=== PATIENT | male | born 1990 | race Caucasian/White ===

== ENCOUNTER 2018-08-02 10:42 | Inpatient (IN) | payer OTHER ==
[2018-08-02 15:57] VITALS: BMI 29.4
--- NOTE | 2018-08-02 16:47 | HP ---
CIWA Score Nausea/Vomitin Muscle Tremors: 5 Anxiety: 5 Agitation: 4-Moderately Restless Paroxysmal Sweats: 1-Minimal Palms Moist Orientation: 0-Oriented Tacttile Disturbances: 2-Mild Itch/Numbness/Burn Auditory Disturbances: 0-None Visual Disturbances: 0-None Headache: 0-None Present CIWA-Ar Total Score: 19 - Admission Criteria OASAS Guidelines: Admission for Medically Managed Detox: Requires at least one of the followin. CIWA greater than 12 2. Seizures within the past 24 hours 3. Delirium tremens within the past 24 hours 4. Hallucinations within the past 24 hours 5. Acute intervention needed for co occurring medical disorder 6. Acute intervention needed for co occurring psychiatric disorder 7. Severe withdrawal that cannot be handled at a lower level of care (continued vomiting, continued diarrhea, abnormal vital signs) requiring intravenous medication and/or fluids 8. Admission ROS BHS - HPI Allergies/Adverse Reactions: Allergies Allergy/AdvReac Type Severity Reaction Status Date / Time No Known Allergies Allergy Verified 08/02/18 15:53 History of Present Illness: pt here requesting detox from etoh use , reports 4 pints/day since 3 years ago , first age of use 22 , latest use this morning , current symptoms as above . cocaine : occasional cannabis : 3x/week tobacco : 02/15 ppd PMHX : denies pshx : denies psych : denies meds : denies shx : lives w/ parents in [facility] Exam Limitations: Clinical Condition - Ebola screening Have you traveled outside of the country in the last 21 days: No Have you had contact with anyone from an Ebola affected area: No - Review of Systems Constitutional: See HPI, Loss of Appetite EENT: reports: No Symptoms Reported Respiratory: reports: SOB with Exertion (occasional) Cardiac: reports: Palpitations GI: reports: See HPI : reports: No Symptoms Reported Musculoskeletal: reports: Back Pain Integumentary: reports: No Symptoms Reported Neuro: reports: See HPI Endocrine: reports: No Symptoms Reported Psychiatric: reports: Orientated x3, Agitated, Anxious Patient History - Smoking Cessation Smoking history: Current every day smoker Initiated information on smoking cessation: No Family Disease History - Family Disease History Family Disease History: Other: Daughter (3 y.o. in [place] ) Admission Physical Exam S - Vital Signs Vital Signs: Vital Signs - 24 hr 08/02/18 15:54 Temperature 97.1 F L Pulse Rate 68 Respiratory 16 Rate Blood Pressure 146/87 - Physical General Appearance: Yes: Disheveled, Moderate Distress, Tremorous, Irritable, Sweating, Anxious HEENTM: Yes: EOMI, Hearing grossly Normal, Normocephalic, Normal Voice Respiratory: Yes: Chest Non-Tender, Lungs Clear, Normal Breath Sounds, No Respiratory Distress, No Accessory Muscle Use Neck: Yes: No masses,lesions,Nodules, Trachea in good position Cardiology: Yes: Regular Rhythm, Regular Rate, S1, S2 Abdominal: Yes: Soft, Tenderness (mild LUQ no rebound tenderness) Musculoskeletal: Yes: Gait Steady Extremities: Yes: Normal Range of Motion, Non-Tender, Tremors Neurological: Yes: Alert, Motor Strength 5/5 Integumentary: Yes: Warm - Diagnostic (1) Alcohol abuse Current Visit: Yes Status: Acute (2) Cocaine use disorder Current Visit: Yes Status: Chronic (3) Cannabis use disorder, mild, abuse Current Visit: Yes Status: Chronic (4) Nicotine dependence Current Visit: Yes Status: Chronic Breathalyzer - Breathalyzer Breathalyzer: 0 Urine Drug Screen - Test Device Lot number: [id number] Expiration date: 04/11/20 - Control Is test valid?: Yes - Results Drug screen NEGATIVE: No Urine drug screen results: THC-Marijuana, AKUA-Cocaine Inpatient Rehab Admission - Rehab Decision to Admit Inpatient rehab admission?: No
[2018-08-02] MEDS ORDERED: hydrOXYzine PAMOATE 25 MG CAPSULE (FP) PO PRN (17:03)
[2018-08-02] MEDS ORDERED: ACETAMINOPHEN 325 MG TABLET (FP) PO PRN ×2 (17:03)
[2018-08-02] MEDS ORDERED: NICOTINE POLACRILEX 2 MG GUM BUC PRN (17:03)
[2018-08-02] MEDS ORDERED: MAG HYDROX/AL HYDROX/SIMETH 30 ML UNIT-DOSE CUP PO PRN (17:03)
[2018-08-02] MEDS ORDERED: BISMUTH SUBSALICYLATE 524 MG/30 ML UD PO PRN (17:03)
[2018-08-02] MEDS ORDERED: MAGNESIUM CITRATE 300 ML BOTTLE PO PRN (17:03)
[2018-08-02] MEDS ORDERED: MAGNESIUM HYDROX 2400MG/30ML ORAL SUSPENSION 30 ML CUP PO PRN (17:03)
[2018-08-02] MEDS ORDERED: MENTHOL/PHENOL 1 EACH UD MM PRN (17:03)
[2018-08-02] MEDS ORDERED: chlordiazePOXIDE HCL 25 MG CAPSULE PO PRN (17:05)
[2018-08-02] MEDS: chlordiazePOXIDE HCL 25 MG CAPSULE PO SCH ×2 (18:23→22:43)
[2018-08-02] MEDS: THIAMINE HCL 100 MG TABLET (FP) PO SCH (22:43)
[2018-08-02] MEDS: MELATONIN 5 MG TABLETS PO PRN (22:44)
[2018-08-03] MEDS: chlordiazePOXIDE HCL 25 MG CAPSULE PO SCH ×4 (05:17→22:11)
--- NOTE | 2018-08-03 10:30 | PN ---
S CIWA - CIWA Score Nausea/Vomitin-No Nausea/No Vomiting Muscle Tremors: 2 Anxiety: 2 Agitation: 0-Normal Activity Paroxysmal Sweats: 3 Orientation: 0-Oriented Tacttile Disturbances: 2-Mild Itch/Numbness/Burn Auditory Disturbances: 0-None Visual Disturbances: 0-None Headache: 2-Mild CIWA-Ar Total Score: 11 BHS Progress Note (SOAP) Subjective: c/o sweats, anxiety, and mild headache. Objective: 08/03/18 10:30 Vital Signs 08/03/18 08/03/18 08/03/18 03:30 06:31 09:49 Temperature 97 F L 96.8 F L Pulse Rate 76 98 H Respiratory 18 18 18 Rate Blood Pressure 128/82 132/81 Labs pending. Assessment: 08/03/18 10:30 AOX3, in no acute distress. Full rom, ambulates in the unit. withdrawal signs Plan: continue detox.
[2018-08-03] MEDS: PRENATAL VITAMINS W/ FOLIC ACID TABLET (FP) PO SCH (10:33)
[2018-08-03 10:39] LABS: HEMATOCRIT 43.9 % (35.4-49); HEMOGLOBIN 15.2 GM/dL (11.7-16.9); MCH 32.1 pg (25.7-33.7); MCHC 34.6 g/dl (32.0-35.9); MEAN CELL VOLUME 92.9 fl (80-96); MEAN PLT VOLUME 7.7 fl (7.5-11.1); PLATELET COUNT 229 K/MM3 (134-434); RBC 4.72 M/mm3 (4.00-5.60); RDW 13.9 % (11.9-15.9); WHITE BLOOD COUNT 5.3 K/mm3 (4.0-10.0)
[2018-08-03 10:41] LABS: ALBUMIN 3.5 g/dl (3.4-5.0); BILIRUBIN,TOTAL 1.4 mg/dL (0.2-1); CALCIUM 9.1 mg/dL (8.5-10.1); POTASSIUM 4.4 mmol/L (3.5-5.1); TOT PROT 6.6 g/dl (6.4-8.2)
[2018-08-03] MEDS: IBUPROFEN 400 MG TABLET (FP) PO PRN (12:25)
[2018-08-03] MEDS ORDERED: METHOCARBAMOL 500 MG TABLET PO ONE (19:18)
--- NOTE | 2018-08-03 19:29 | PN ---
S Progress Note Note: patient complaint of pain in the left inguinal area denied urinary frequency history of alcohol dependence no history of trauma afebrile Vital Signs Temperature 97.6 F 08/03/18 18:00 Pulse Rate 87 08/03/18 18:00 Respiratory Rate 18 08/03/18 18:00 Blood Pressure 140/80 08/03/18 18:00 O2 Sat by Pulse Oximetry (%) abdomen soft,no distension no pain or tenderness no guarding,no regidity bowel sound active pain in the left inguinal area no definite henia both testes present,normal lying position no tenderness of testes pain over the epididymis impression r/o eididymitis left close monitoring
[2018-08-03 21:14] LABS: EPI CELLS 4.3 /HPF (0-5/HPF); HYALINE CASTS 107 /lpf (0-8); PH,URINE 6.5 (5.0-8.0); URINE APPEARANCE CLEAR; URINE BACTERIA 2.2 /hpf (NEGATIVE); URINE BILIRUBIN NEGATIVE (NEGATIVE); URINE COLOR YELLOW; URINE GLUCOSE (UA) NEGATIVE (NEGATIVE); URINE KETONE TRACE (NEGATIVE); URINE LEUK ESTERASE 1+ (NEGATIVE); URINE NITRITE NEGATIVE (NEGATIVE); URINE PROTEIN TRACE (NEGATIVE); URINE RBC 1 /hpf (0-4); URINE WBC 4 /hpf (0-5)
[2018-08-03] MEDS: THIAMINE HCL 100 MG TABLET (FP) PO SCH (22:10)
[2018-08-03] MEDS: MELATONIN 5 MG TABLETS PO PRN (22:10)
[2018-08-04] MEDS: chlordiazePOXIDE HCL 25 MG CAPSULE PO SCH ×2 (06:19→10:29)
[2018-08-04] MEDS ORDERED: METHOCARBAMOL 500 MG TABLET PO ONE (07:40)
[2018-08-04] MEDS: PRENATAL VITAMINS W/ FOLIC ACID TABLET (FP) PO SCH (10:28)
[2018-08-04] MEDS: IBUPROFEN 400 MG TABLET (FP) PO PRN (10:29)
--- NOTE | 2018-08-04 14:09 | PN ---
S CIWA - CIWA Score Nausea/Vomitin-Mild Nausea/No Vomiting Muscle Tremors: 1-None Visible, but [place] Anxiety: 1-Mildly Anxious Agitation: 1-Slight > Activity Paroxysmal Sweats: 2 Orientation: 0-Oriented Tacttile Disturbances: 1-Very Mild Itch/Numbness Auditory Disturbances: 0-None Visual Disturbances: 1-Very Mild Sensitivity Headache: 0-None Present CIWA-Ar Total Score: 8 BHS Progress Note (SOAP) Subjective: SHAKY, GI UPSET,ANXIOUS DENIES WORSENED PAIN Objective: 08/04/18 14:06 Laboratory Tests 08/03/18 08/03/18 08/03/18 08:00 08:00 08:00 WBC 5.3 RBC 4.72 Hgb 15.2 Hct 43.9 MCV 92.9 MCH 32.1 MCHC 34.6 RDW 13.9 Plt Count 229 MPV 7.7 Sodium 140 Potassium 4.4 Chloride 104 Carbon Dioxide 27 Anion Gap 9 BUN 12.0 Creatinine 1.0 Est GFR (CKD-EPI)AfAm 119.02 Est GFR (CKD-EPI)NonAf 102.69 Random Glucose 102 Calcium 9.1 Total Bilirubin 1.4 H AST 218 H ALT 252 H Alkaline Phosphatase 95 Total Protein 6.6 Albumin 3.5 Urine Color Urine Appearance Urine pH Ur Specific [place] Urine Protein Urine Glucose (UA) Urine Ketones Urine Blood Urine Nitrite Urine Bilirubin Urine Urobilinogen Ur Leukocyte Esterase Urine WBC (Auto) Urine RBC (Auto) Urine Casts (Auto) U Epithel Cells (Auto) Urine Bacteria (Auto) RPR Titer Nonreactive HIV 1&2 Antibody Screen HIV P24 Antigen 08/03/18 08/03/18 08:00 19:30 WBC RBC Hgb Hct MCV MCH MCHC RDW Plt Count MPV Sodium Potassium Chloride Carbon Dioxide Anion Gap BUN Creatinine Est GFR (CKD-EPI)AfAm Est GFR (CKD-EPI)NonAf Random Glucose Calcium Total Bilirubin AST ALT Alkaline Phosphatase Total Protein Albumin Urine Color Yellow Urine Appearance Clear Urine pH 6.5 Ur Specific [place] 1.026 Urine Protein Trace Urine Glucose (UA) Negative Urine Ketones Trace H Urine Blood Negative Urine Nitrite Negative Urine Bilirubin Negative Urine Urobilinogen 1.0 Ur Leukocyte Esterase 1+ H Urine WBC (Auto) 4 Urine RBC (Auto) 1 Urine Casts (Auto) 107 U Epithel Cells (Auto) 4.3 Urine Bacteria (Auto) 2.2 RPR Titer HIV 1&2 Antibody Screen Negative HIV P24 Antigen Negative Laboratory Tests 08/03/18 08/03/18 08/03/18 08:00 08:00 08:00 WBC 5.3 RBC 4.72 Hgb 15.2 Hct 43.9 MCV 92.9 MCH 32.1 MCHC 34.6 RDW 13.9 Plt Count 229 MPV 7.7 Sodium 140 Potassium 4.4 Chloride 104 Carbon Dioxide 27 Anion Gap 9 BUN 12.0 Creatinine 1.0 Est GFR (CKD-EPI)AfAm 119.02 Est GFR (CKD-EPI)NonAf 102.69 Random Glucose 102 Calcium 9.1 Total Bilirubin 1.4 H AST 218 H ALT 252 H Alkaline Phosphatase 95 Total Protein 6.6 Albumin 3.5 Urine Color Urine Appearance Urine pH Ur Specific [place] Urine Protein Urine Glucose (UA) Urine Ketones Urine Blood Urine Nitrite Urine Bilirubin Urine Urobilinogen Ur Leukocyte Esterase Urine WBC (Auto) Urine RBC (Auto) Urine Casts (Auto) U Epithel Cells (Auto) Urine Bacteria (Auto) RPR Titer Nonreactive HIV 1&2 Antibody Screen HIV P24 Antigen 08/03/18 08/03/18 08:00 19:30 WBC RBC Hgb Hct MCV MCH MCHC RDW Plt Count MPV Sodium Potassium Chloride Carbon Dioxide Anion Gap BUN Creatinine Est GFR (CKD-EPI)AfAm Est GFR (CKD-EPI)NonAf Random Glucose Calcium Total Bilirubin AST ALT Alkaline Phosphatase Total Protein Albumin Urine Color Yellow Urine Appearance Clear Urine pH 6.5 Ur Specific [place] 1.026 Urine Protein Trace Urine Glucose (UA) Negative Urine Ketones Trace H Urine Blood Negative Urine Nitrite Negative Urine Bilirubin Negative Urine Urobilinogen 1.0 Ur Leukocyte Esterase 1+ H Urine WBC (Auto) 4 Urine RBC (Auto) 1 Urine Casts (Auto) 107 U Epithel Cells (Auto) 4.3 Urine Bacteria (Auto) 2.2 RPR Titer HIV 1&2 Antibody Screen Negative HIV P24 Antigen Negative ALERT, AMBULATING, ORIENTED Assessment: 08/04/18 14:08 ONGOING WITHDRAWAL IMPROVED PAIN Plan: CONTINUE DETOX PROTOCOL CONT TO MONITOR INGUINAL PAIN
[2018-08-04] MEDS ORDERED: chlordiazePOXIDE HCL 10 MG CAPSULE PO PRN (17:00)
[2018-08-04] MEDS: chlordiazePOXIDE HCL 10 MG CAPSULE PO SCH ×2 (17:09→22:09)
[2018-08-04] MEDS: THIAMINE HCL 100 MG TABLET (FP) PO SCH (22:09)
[2018-08-04] MEDS: MELATONIN 5 MG TABLETS PO PRN (22:09)
[2018-08-05] MEDS ORDERED: guaiFENesin/D-METHORPHAN HB 10 ML UNIT-DOSE CUPS PO PRN (01:37)
--- NOTE | 2018-08-05 01:45 | PN ---
[facility] Progress Note Note: Patient complained of cough Vital Signs Temperature 97.7 F 08/04/18 22:00 Pulse Rate 61 08/04/18 22:00 Respiratory Rate 18 08/05/18 00:30 Blood Pressure 132/83 08/04/18 22:00 O2 Sat by Pulse Oximetry (%) Action: Robitussin DM 10ml oral Q6H ordered
[2018-08-05] MEDS: chlordiazePOXIDE HCL 10 MG CAPSULE PO SCH ×2 (05:09→10:50)
[2018-08-05 06:17] VITALS: BP 98/60; PULSE 53; TEMP 97
[2018-08-05 10:29] LABS: ALBUMIN 3.4 g/dl (3.4-5.0); BILIRUBIN,DIRECT 0.4 mg/dL (0.0-0.2); BILIRUBIN,TOTAL 0.8 mg/dL (0.2-1); TOT PROT 6.4 g/dl (6.4-8.2)
[2018-08-05] MEDS: PRENATAL VITAMINS W/ FOLIC ACID TABLET (FP) PO SCH (10:50)
[2018-08-05] MEDS ORDERED: chlordiazePOXIDE HCL 10 MG CAPSULE PO SCH (17:00)
--- NOTE | 2018-08-05 22:49 | PN ---
S CIWA - CIWA Score Nausea/Vomitin-No Nausea/No Vomiting Muscle Tremors: None Anxiety: 0-No Anxiety, at Ease Agitation: 2 Paroxysmal Sweats: No Perspiration Orientation: 0-Oriented Tacttile Disturbances: 0-None Auditory Disturbances: 0-None Visual Disturbances: 0-None Headache: 0-None Present CIWA-Ar Total Score: 2 BHS Progress Note (SOAP) Subjective: Patient reports That Patient reports that current Withdrawal / Detox symptoms are minimal in degree and that he feels well overall. Objective: PATIENT A & O X 3, OBSERVED AMBULATING ON UNIT UNASSISTED. IN NO ACUTE DISTRESS. Vital Signs Temperature 97 F L 08/05/18 06:16 Pulse Rate 53 L 08/05/18 06:16 Respiratory Rate 18 08/05/18 06:30 Blood Pressure 98/60 08/05/18 06:16 O2 Sat by Pulse Oximetry (%) Laboratory Tests 08/03/18 08/03/18 08/03/18 08:00 08:00 08:00 WBC 5.3 RBC 4.72 Hgb 15.2 Hct 43.9 MCV 92.9 MCH 32.1 MCHC 34.6 RDW 13.9 Plt Count 229 MPV 7.7 Sodium 140 Potassium 4.4 Chloride 104 Carbon Dioxide 27 Anion Gap 9 BUN 12.0 Creatinine 1.0 Est GFR (CKD-EPI)AfAm 119.02 Est GFR (CKD-EPI)NonAf 102.69 Random Glucose 102 Calcium 9.1 Total Bilirubin 1.4 H Direct Bilirubin AST 218 H ALT 252 H Alkaline Phosphatase 95 Total Protein 6.6 Albumin 3.5 Urine Color Urine Appearance Urine pH Ur Specific [place] Urine Protein Urine Glucose (UA) Urine Ketones Urine Blood Urine Nitrite Urine Bilirubin Urine Urobilinogen Ur Leukocyte Esterase Urine WBC (Auto) Urine RBC (Auto) Urine Casts (Auto) U Epithel Cells (Auto) Urine Bacteria (Auto) RPR Titer Nonreactive HIV 1&2 Antibody Screen HIV P24 Antigen 08/03/18 08/03/18 08/05/18 08:00 19:30 07:00 WBC RBC Hgb Hct MCV MCH MCHC RDW Plt Count MPV Sodium Potassium Chloride Carbon Dioxide Anion Gap BUN Creatinine Est GFR (CKD-EPI)AfAm Est GFR (CKD-EPI)NonAf Random Glucose Calcium Total Bilirubin 0.8 Direct Bilirubin 0.4 H AST 408 H ALT 492 H Alkaline Phosphatase 103 Total Protein 6.4 Albumin 3.4 Urine Color Yellow Urine Appearance Clear Urine pH 6.5 Ur Specific [place] 1.026 Urine Protein Trace Urine Glucose (UA) Negative Urine Ketones Trace H Urine Blood Negative Urine Nitrite Negative Urine Bilirubin Negative Urine Urobilinogen 1.0 Ur Leukocyte Esterase 1+ H Urine WBC (Auto) 4 Urine RBC (Auto) 1 Urine Casts (Auto) 107 U Epithel Cells (Auto) 4.3 Urine Bacteria (Auto) 2.2 RPR Titer HIV 1&2 Antibody Screen Negative HIV P24 Antigen Negative LABS NOTED. 08/05/18 22:46 Assessment: 08/05/18 22:47 COMPLETION OF DETOX REGIMEN. 08/05/18 22:47 Plan: SINCE PATIENT REPORTS THAT CURRENT WITHDRAWAL / DETOX SYMPTOMS ARE MINIMAL IN DEGREE AND THAT HE FEELS WELL OVERALL, AT PATIENTS REQUEST, HE WAS GRANTED AN EARLY DISCHARGE FROM DETOX UNIT TODAY SO THAT HE MAY PROCEED ON TO AFTERCARE PLAN - THE [facility] ([place], [place]).
--- NOTE | 2018-08-05 22:54 | DS ---
[facility] Detox Discharge Summary Admission Date: 08/02/18 Discharge Date: 08/05/18 - History Present History: Alcohol Dependence, Cannabis Dependence, Cocaine Dependence Additional Comments: PATIENT REPORTS THAT CURRENT WITHDRAWAL / DETOX SYMPTOMS ARE MINIMAL IN DEGREE AND THAT HE FEELS WELL OVERALL AT TIME OF DISCHARGE FROM DETOX UNIT. PATIENT GOING TO THE '[facility] OUTPATIENT PROGRAM ([place], [place]) FOR AFTERCARE. PATIENT ADVISED TO FOLLOW-UP WITH STREET OPENINGS INSPECTOR AFTER DISCHARGE FROM DETOX FOR GENERAL MEDICAL ASSESSMENT AND FOR ELEVATED LIVER ENZYMES AND FOR ELEVAGTED BILIRUBIN LEVEL NOTED ON DETOX ADMISSION AND REPEAT LABORATORY ASSESSMENTS. PATIENT VERBALIZED UNDERSTANDING OF RECOMMENDATION. COPIES OF RESULTS OF ALL LABS DRAWN WHILE ADMITTED FOR DETOX GIVEN TO PATIENT AT TIME OF DISCHARGE FROM DETOX UNIT. PATIENT WAS DISCHARGED FROM DETOX UNIT IN STABLE MEDICAL CONDITION. Pertinent Past History: Nicotine Dependence, Elevated AST Level, Elevated ALT Level, Hyperbilirubinemia. - Physical Exam Results Vital Signs: Vital Signs Temperature 97 F L 08/05/18 06:16 Pulse Rate 53 L 08/05/18 06:16 Respiratory Rate 18 08/05/18 06:30 Blood Pressure 98/60 08/05/18 06:16 O2 Sat by Pulse Oximetry (%) Pertinent Admission Physical Exam Findings: WITHDRAWAL SYMPTOMS. Laboratory Tests 08/03/18 08/03/18 08/03/18 08:00 08:00 08:00 WBC 5.3 RBC 4.72 Hgb 15.2 Hct 43.9 MCV 92.9 MCH 32.1 MCHC 34.6 RDW 13.9 Plt Count 229 MPV 7.7 Sodium 140 Potassium 4.4 Chloride 104 Carbon Dioxide 27 Anion Gap 9 BUN 12.0 Creatinine 1.0 Est GFR (CKD-EPI)AfAm 119.02 Est GFR (CKD-EPI)NonAf 102.69 Random Glucose 102 Calcium 9.1 Total Bilirubin 1.4 H Direct Bilirubin AST 218 H ALT 252 H Alkaline Phosphatase 95 Total Protein 6.6 Albumin 3.5 Urine Color Urine Appearance Urine pH Ur Specific [place] Urine Protein Urine Glucose (UA) Urine Ketones Urine Blood Urine Nitrite Urine Bilirubin Urine Urobilinogen Ur Leukocyte Esterase Urine WBC (Auto) Urine RBC (Auto) Urine Casts (Auto) U Epithel Cells (Auto) Urine Bacteria (Auto) RPR Titer Nonreactive HIV 1&2 Antibody Screen HIV P24 Antigen 08/03/18 08/03/18 08/05/18 08:00 19:30 07:00 WBC RBC Hgb Hct MCV MCH MCHC RDW Plt Count MPV Sodium Potassium Chloride Carbon Dioxide Anion Gap BUN Creatinine Est GFR (CKD-EPI)AfAm Est GFR (CKD-EPI)NonAf Random Glucose Calcium Total Bilirubin 0.8 Direct Bilirubin 0.4 H AST 408 H ALT 492 H Alkaline Phosphatase 103 Total Protein 6.4 Albumin 3.4 Urine Color Yellow Urine Appearance Clear Urine pH 6.5 Ur Specific [place] 1.026 Urine Protein Trace Urine Glucose (UA) Negative Urine Ketones Trace H Urine Blood Negative Urine Nitrite Negative Urine Bilirubin Negative Urine Urobilinogen 1.0 Ur Leukocyte Esterase 1+ H Urine WBC (Auto) 4 Urine RBC (Auto) 1 Urine Casts (Auto) 107 U Epithel Cells (Auto) 4.3 Urine Bacteria (Auto) 2.2 RPR Titer HIV 1&2 Antibody Screen Negative HIV P24 Antigen Negative LABS NOTED. - Treatment Hospital Course: Detox Protocol Followed, Detoxed Safely, Responded well, Discharged Condition Good Patient has Accepted a Rehab Referral to: PT. GOING TO THE [facility], [place], [place] - Medication Discharge Medications: Ambulatory Orders NK [No Known Home Medication] 08/02/18 - Diagnosis (1) Elevated aspartate aminotransferase level Status: Acute (2) Elevated alanine aminotransferase (ALT) level Status: Acute (3) Alcohol abuse Status: Acute (4) Cannabis use disorder, mild, abuse Status: Chronic (5) Cocaine use disorder Status: Chronic (6) Nicotine dependence Status: Chronic Qualifiers: Nicotine product type: cigarettes Substance use status: uncomplicated Qualified Code(s): F17.210 - Nicotine dependence, cigarettes, uncomplicated - AMA Did Patient Leave Against Medical Advice: No
== END 2018-08-05 09:10 | disposition home or self-care (01) | DRG 774 ==
LOC: YASAS 10:42 → Y3N 17:29
PROVIDERS: ADMIT Surgery; ATTEND Surgery
PROC: HZ2ZZZZ Detoxification Services for Substance Abuse Treatment (ICD-10-PCS; principal; 2018-08-02)
DX: F10.230 Alcohol dependence with withdrawal, uncomplicated (principal); F12.10 Cannabis abuse, uncomplicated; F14.10 Cocaine abuse, uncomplicated; F17.210 Nicotine dependence, cigarettes, uncomplicated; R94.5 Abnormal results of liver function studies; E80.6 Other disorders of bilirubin metabolism; R05 Cough; R10.32 Left lower quadrant pain
CPT/HCPCS: 36415; 80053; 80076; 81003; 85027; 86593; 87389

== ENCOUNTER 2019-08-15 09:09 | Inpatient (IN) | payer OTHER ==
--- NOTE | 2019-08-15 10:40 | BHS.RME ---
Substance Use & Tx History - Substance Use History Alcohol Substance amount: 1/5 vodka and 1 pint Frequency of use: Daily Substance route: Oral Cocaine- Powder Substance amount: " not a lot" Frequency of use: Less than 3 times per week Substance route: Inhalation (ex: sniffing or snorting), Smoking Cannabis Substance amount: 1 Frequency of use: More than 3 times per week Substance route: Inhalation (ex: sniffing or snorting) - Last Treatment Date of last treatment: 04/2019 Where was last treatment: Detox Physical/Psych/Mental Status - Behavior General Behavior: Increased activity (restlessness, agitation) - Cooperativeness Cooperativeness: Cooperative - Thinking Thought Processes: Logical, Loosened - Physical Health Problems Is patient presently having any pain?: No Does patient presently have any injuries (include location): No Does patient currently have a fever: No CIWA Nausea/Vomitin-Int. Nausea w/Dry Heave Muscle Tremors: 3 Anxiety: 3 Agitation: 3 Paroxysmal Sweats: 2 Orientation: 0-Oriented Tacttile Disturbances: 0-None Auditory Disturbances: 0-None Visual Disturbances: 2-Mild Sensitivity Headache: 1-Very Mild CIWA-Ar Total Score: 18
--- NOTE | 2019-08-15 10:43 | HP ---
CIWA Score Nausea/Vomitin-Int. Nausea w/Dry Heave Muscle Tremors: 3 Anxiety: 3 Agitation: 3 Paroxysmal Sweats: 2 Orientation: 0-Oriented Tacttile Disturbances: 0-None Auditory Disturbances: 0-None Visual Disturbances: 2-Mild Sensitivity Headache: 1-Very Mild CIWA-Ar Total Score: 18 - Admission Criteria OASAS Guidelines: Admission for Medically Managed Detox: Requires at least one of the followin. CIWA greater than 12 2. Seizures within the past 24 hours 3. Delirium tremens within the past 24 hours 4. Hallucinations within the past 24 hours 5. Acute intervention needed for co occurring medical disorder 6. Acute intervention needed for co occurring psychiatric disorder 7. Severe withdrawal that cannot be handled at a lower level of care (continued vomiting, continued diarrhea, abnormal vital signs) requiring intravenous medication and/or fluids 8. Admitting History and Physical - Smoking History Smoking history: Current every day smoker Have you smoked in the past 12 months: Yes Aproximately how many cigarettes per day: 4 - Alcohol/Substance Use Hx Alcohol Use: Yes - Social History Occupation: cleaning History of Recent Travel: No Admission ROS S - HPI Allergies/Adverse Reactions: Allergies Allergy/AdvReac Type Severity Reaction Status Date / Time No Known Allergies Allergy Verified 08/15/19 11:43 History of Present Illness: 29 y.o. male requesting detox from etoh use , reports 1 pint and 1/5 vodka/day since 4 years ago , first age of use 22 , latest use this morning , current [place] 0.210 cocaine : occasional cannabis : 3x/week tobacco : 1/4 ppd Exam Limitations: Clinical Condition, Intoxication - Review of Systems Constitutional: See HPI, Loss of Appetite EENT: reports: No Symptoms Reported, Other (glasses) Respiratory: reports: Shortness of Breath (during withdrawal only) Cardiac: reports: No Symptoms Reported GI: reports: See HPI, Nausea, Poor Appetite, Vomiting : reports: No Symptoms Reported Musculoskeletal: reports: No Symptoms Reported Integumentary: reports: No Symptoms Reported Neuro: reports: See HPI, Headache, Tremors Endocrine: reports: No Symptoms Reported Hematology: reports: No Symptoms Reported Psychiatric: reports: Orientated x3, Agitated, Anxious Patient History - Patient Medical History Hx Asthma: No Hx Chronic Obstructive Pulmonary Disease (COPD): No Hx Cancer: No Hx Cardiac Disorders: No Hx Hypertension: No Hx Hypercholesterolemia: No Hx Pacemaker: No HX Cerebrovascular Accident: No Hx Seizures: No Hx Dementia: No Hx Diabetes: No Hx Gastrointestinal Disorders: No Hx Liver Disease: No Hx Genitourinary Disorders: No Hx Sexually Transmitted Disorders: No Hx Renal Disease (ESRD): No Hx Thyroid Disease: No Hx Human Immunodeficiency Virus (HIV): No (last 04/03 ) Hx Hepatitis C: No Hx Depression: No Hx Suicide Attempt: No Hx Bipolar Disorder: No Hx Schizophrenia: No - Patient Surgical History Past Surgical History: No Hx Neurologic Surgery: No Hx Cataract Extraction: No Hx Cardiac Surgery: No Hx Lung Surgery: No Hx Breast Surgery: No Hx Breast Biopsy: No Hx Abdominal Surgery: No Hx Appendectomy: No Hx Cholecystectomy: No Hx Genitourinary Surgery: No Hx Section: No Hx Orthopedic Surgery: No Anesthesia Reaction: No - PPD History Date: 08/04/18 Results: 0 mm - Smoking Cessation Smoking history: Current every day smoker Have you smoked in the past 12 months: Yes Aproximately how many cigarettes per day: 4 Cigars Per Day: 0 Hx Chewing Tobacco Use: No Initiated information on smoking cessation: No - Substances abused Alcohol Substance route: Oral Frequency: Daily Amount used: 5th and pint of vodka Age of first use: 16 Date of last use: 08/15/19 Admission Physical Exam [facility] - Physical General Appearance: Yes: Moderate Distress, Severe Distress, Alcohol on Breath, Intoxicated, Tremorous, Sweating, Anxious HEENTM: Yes: EOMI, Hearing grossly Normal, Normocephalic, Normal Voice Respiratory: Yes: Chest Non-Tender, Lungs Clear, Normal Breath Sounds, No Respiratory Distress, No Accessory Muscle Use Neck: Yes: No masses,lesions,Nodules, Trachea in good position Cardiology: Yes: Regular Rhythm, Regular Rate, S1, S2, Tachycardia Abdominal: Yes: Normal Bowel Sounds, Non Tender, Soft Back: Yes: Normal Inspection Musculoskeletal: Yes: Other (staggering gait) Extremities: Yes: Normal Range of Motion, Non-Tender, Tremors Neurological: Yes: Fully Oriented, Alert, Motor Strength 5/5 Integumentary: Yes: Warm - Diagnostic (1) Alcohol dependence with uncomplicated intoxication Current Visit: Yes Status: Acute (2) Cannabis use disorder, mild, abuse Current Visit: Yes Status: Chronic (3) Cocaine use disorder Current Visit: Yes Status: Chronic (4) Nicotine dependence Current Visit: Yes Status: Chronic Qualifiers: Nicotine product type: cigarettes Breathalyzer - Breathalyzer Breathalyzer: 0 Urine Drug Screen - Test Device Lot number: [id number] Expiration date: 04/11/20 - Control Is test valid?: Yes - Results Drug screen NEGATIVE: No Urine drug screen results: THC-Marijuana, AKUA-Cocaine Inpatient Rehab Admission - Rehab Decision to Admit Inpatient rehab admission?: No
[2019-08-15] MEDS ORDERED: IBUPROFEN 400 MG TABLET (FP) PO PRN (11:03)
[2019-08-15] MEDS ORDERED: MELATONIN 5 MG TABLETS PO PRN (11:03)
[2019-08-15] MEDS ORDERED: MAGNESIUM HYDROX 2400MG/30ML ORAL SUSPENSION 30 ML CUP PO PRN (11:03)
[2019-08-15] MEDS ORDERED: MAGNESIUM CITRATE 300 ML BOTTLE PO PRN (11:03)
[2019-08-15] MEDS ORDERED: BISMUTH SUBSALICYLATE 524 MG/30 ML UD PO PRN (11:03)
[2019-08-15] MEDS ORDERED: MAG HYDROX/AL HYDROX/SIMETH 30 ML UNIT-DOSE CUP PO PRN (11:03)
[2019-08-15] MEDS ORDERED: ONDANSETRON *ODT* 4 MG TABLET SL PRN ×2 (11:03→17:06)
[2019-08-15] MEDS ORDERED: ACETAMINOPHEN 325 MG TABLET (FP) PO PRN ×2 (11:03)
[2019-08-15] MEDS ORDERED: NICOTINE POLACRILEX 2 MG GUM BUC PRN (11:03)
[2019-08-15] MEDS ORDERED: hydrOXYzine PAMOATE 25 MG CAPSULE (FP) PO PRN (11:03)
[2019-08-15] MEDS ORDERED: MENTHOL/PHENOL 1 EACH UD MM PRN (11:03)
[2019-08-15] MEDS ORDERED: chlordiazePOXIDE HCL 25 MG CAPSULE PO PRN (11:06)
[2019-08-15] MEDS ORDERED: TRIMETHOBENZAMIDE HCL 200MG/2ML INJ IM ONE ×2 (11:08→18:51)
[2019-08-15 11:09] VITALS: BMI 29.2
[2019-08-15] MEDS: chlordiazePOXIDE HCL 25 MG CAPSULE PO SCH ×3 (11:39→22:08)
--- NOTE | 2019-08-15 13:37 | CONSULT ---
[facility] Psychiatric Consult - Data Date of interview: 08/15/19 Admission source: [facility] Identifying data: Readmission to [address] [place] [address] for this 29 y/o male, self- referred for detoxification treatment. JORGE issues : alcohol, cocaine, cannabis, nicotine. Patient is single, father of one, domiciled, unemployed and supported on odd jobs. Substance Abuse History: Patient is previously known to [facility]. He admits to having started consuming ETOH about 4-5 years ago (1-2 pints of vodka daily) and sporadic use of cocaine and cannabis. Mr Amor smokes 5-10 cigarettes daily. History of multiple relapses. Medical History: Patient endorses good general health. Psychiatric History: Patient denies history of psychiatric hospitalizations. Mr Amor indicates current treatment with escitalopram under the diagnosis of Anxiety Disorder (prescribed by his primary care physician). Patient reports no contact with psychiatric care providers. No history of suicide attempts. Physical/Sexual Abuse/Trauma History: Patient denies. Additional Comment: Urine drug screen results: THC-Marijuana, AKUA-Cocaine. Noted. Mental Status Exam - Mental Status Exam Alert and Oriented to: Time, Place, Person Cognitive Function: Good Patient Appearance: Well Groomed Mood: Withdrawn Affect: Mood Congruent, Constricted Patient Behavior: Fatigued, Appropriate, Cooperative Speech Pattern: Clear, Appropriate Voice Loudness: Normal Thought Process: Intact, Goal Oriented Thought Disorder: Not Present Hallucinations: Denies Suicidal Ideation: Denies Homicidal Ideation: Denies Insight/Judgement: Poor Sleep: Well Appetite: Good Gait/Station: Other (not observed; patient is resting comfortably in bed) Psychiatric Findings - Problem List ([place] 1, 2,3) (1) Alcohol dependence with uncomplicated withdrawal Current Visit: Yes Status: Acute (2) Cannabis use disorder, mild, abuse Current Visit: Yes Status: Chronic (3) Cocaine use disorder Current Visit: Yes Status: Chronic (4) Nicotine dependence Current Visit: Yes Status: Chronic Qualifiers: Nicotine product type: cigarettes (5) Substance induced mood disorder Current Visit: Yes Status: Chronic (6) Insomnia Current Visit: Yes Status: Chronic Qualifiers: Insomnia type: unspecified Qualified Code(s): G47.00 - Insomnia, unspecified - Initial Treatment Plan Initial Treatment Plan: Psychoeducation. Sleep hygiene. Support. Detoxification is intiated. Group and individual therapy. Motivational counseling. Strict adherence to COVID-19 guidelines (social distancing, hand washing, face mask to be worn at all times in communal areas of the unit). Patient declines to resume lexapro. Mr Amor verbalizes no interest for rehabilitation. Patient prefers to return to employment after completion of detoxification. Observation.
[2019-08-15] MEDS ORDERED: THIAMINE HCL 100 MG TABLET (FP) PO SCH (22:00)
[2019-08-15] MEDS: METHOCARBAMOL 500 MG TABLET PO PRN (23:25)
[2019-08-16] MEDS: chlordiazePOXIDE HCL 25 MG CAPSULE PO SCH ×2 (05:44→10:18)
[2019-08-16] MEDS ORDERED: PRENATAL VITAMINS W/ FOLIC ACID TABLET (FP) PO SCH (10:00)
[2019-08-16 10:07] LABS: HEMATOCRIT 40.3 % (35.4-49); HEMOGLOBIN 13.7 GM/dL (11.7-16.9); MCH 32.4 pg (25.7-33.7); MEAN CELL VOLUME 95.5 fl (80-96); MEAN PLT VOLUME 7.8 fl (7.5-11.1); PLATELET COUNT 188 K/MM3 (134-434); RBC 4.22 M/mm3 (4.00-5.60); WHITE BLOOD COUNT 5.5 K/mm3 (4.0-10.0)
[2019-08-16 10:13] LABS: ALBUMIN 3.2 g/dl (3.4-5.0); BLOOD UREA NITROGEN 10.7 mg/dL (7-18); CALCIUM 8.9 mg/dL (8.5-10.1); CREATININE 0.9 mg/dL (0.55-1.3); POTASSIUM 3.9 mmol/L (3.5-5.1); TOT PROT 6.1 g/dl (6.4-8.2)
--- NOTE | 2019-08-16 11:04 | PN ---
S CIWA - CIWA Score Nausea/Vomitin-No Nausea/No Vomiting Muscle Tremors: 2 Anxiety: 3 Agitation: 0-Normal Activity Paroxysmal Sweats: 3 Orientation: 0-Oriented Tacttile Disturbances: 0-None Auditory Disturbances: 0-None Visual Disturbances: 0-None Headache: 2-Mild CIWA-Ar Total Score: 10 S Progress Note (SOAP) Subjective: c/o anxiety, sweats, and headache. Objective: 08/16/19 11:01 Vital Signs 08/16/19 08/16/19 08/16/19 03:21 05:35 06:30 Temperature 96.8 F L Pulse Rate 53 L Respiratory 18 16 18 Rate Blood Pressure 111/65 O2 Sat by Pulse 95 Oximetry (%) 08/16/19 09:01 Temperature 97.8 F Pulse Rate 52 L Respiratory 18 Rate Blood Pressure 136/91 O2 Sat by Pulse Oximetry (%) Laboratory Last Values WBC 5.5 K/mm3 (4.0-10.0) 08/16/19 07:30 RBC 4.22 M/mm3 (4.00-5.60) 08/16/19 07:30 Hgb 13.7 GM/dL (11.7-16.9) 08/16/19 07:30 Hct 40.3 % (35.4-49) 08/16/19 07:30 MCV 95.5 fl (80-96) 08/16/19 07:30 MCH 32.4 pg (25.7-33.7) 08/16/19 07:30 MCHC 34.0 g/dl (32.0-35.9) 08/16/19 07:30 RDW 14.0 % (11.9-15.9) 08/16/19 07:30 Plt Count 188 K/MM3 (134-434) D 08/16/19 07:30 MPV 7.8 fl (7.5-11.1) 08/16/19 07:30 Sodium 140 mmol/L (136-145) 08/16/19 07:30 Potassium 3.9 mmol/L (3.5-5.1) 08/16/19 07:30 Chloride 107 mmol/L (98-107) 08/16/19 07:30 Carbon Dioxide 28 mmol/L (21-32) 08/16/19 07:30 Anion Gap 6 MMOL/L (8-16) L 08/16/19 07:30 BUN 10.7 mg/dL (7-18) 08/16/19 07:30 Creatinine 0.9 mg/dL (0.55-1.3) 08/16/19 07:30 Est GFR (CKD-EPI)AfAm 134.24 08/16/19 07:30 Est GFR (CKD-EPI)NonAf 115.82 08/16/19 07:30 Random Glucose 93 mg/dL (74-106) 08/16/19 07:30 Calcium 8.9 mg/dL (8.5-10.1) 08/16/19 07:30 Total Bilirubin 1.0 mg/dL (0.2-1) 08/16/19 07:30 AST 265 U/L (15-37) H 08/16/19 07:30 ALT 261 U/L (13-61) H 08/16/19 07:30 Alkaline Phosphatase 122 U/L (45-117) H 08/16/19 07:30 Total Protein 6.1 g/dl (6.4-8.2) L 08/16/19 07:30 Albumin 3.2 g/dl (3.4-5.0) L 08/16/19 07:30 Labs noted with elevated AST/ALT. Assessment: 08/16/19 11:02 AOX3, in no acute respiratory distress. Full ROM, ambulating in the unit. Withdrawal symptoms. Elevated liver enzymes. Plan: Continue detox. change Librium protocol to Ativan protocol.
[2019-08-16] MEDS ORDERED: LORazepam 1 MG TABLET PO PRN (11:06)
[2019-08-16 13:01] VITALS: PULSE 60; TEMP 97.1
[2019-08-16] MEDS: METHOCARBAMOL 500 MG TABLET PO PRN (14:25)
[2019-08-16] MEDS ORDERED: LORazepam 1 MG TABLET PO SCH (17:00)
[2019-08-16] MEDS ORDERED: LORazepam 2 MG TABLET PO SCH (17:00)
[2019-08-16 17:23] VITALS: BP 127/85
--- NOTE | 2019-08-16 17:25 | PN ---
[facility] Progress Note Note: patient did not want to complete treatment due to family emergency.high risks of relapsing explained,patient understood, patient signed release ama,seen by counselor
--- NOTE | 2019-08-16 17:30 | DS ---
[facility] Detox Discharge Summary Admission Date: 08/15/19 Discharge Date: 08/16/19 - History Present History: Alcohol Dependence, Cannabis Dependence, Cocaine Dependence Additional Comments: alert,oriented x 3 ambulation ok lung clear on auscultation bilaterally had family emergency signed release ama,seen by counselor follow up with after care program as arrangement by counselor Pertinent Past History: anxiety nicotine dependence - Physical Exam Results Vital Signs: Vital Signs Temperature 97.1 F L 08/16/19 16:34 Pulse Rate 60 08/16/19 16:34 Respiratory Rate 18 08/16/19 16:34 Blood Pressure 127/85 08/16/19 16:34 O2 Sat by Pulse Oximetry (%) 99 08/16/19 12:38 Pertinent Admission Physical Exam Findings: withdrawal sign and symptom Vital Signs Temperature 97.1 F L 08/16/19 16:34 Pulse Rate 60 08/16/19 16:34 Respiratory Rate 18 08/16/19 16:34 Blood Pressure 127/85 08/16/19 16:34 O2 Sat by Pulse Oximetry (%) 99 08/16/19 12:38 Laboratory Last Values WBC 5.5 K/mm3 (4.0-10.0) 08/16/19 07:30 RBC 4.22 M/mm3 (4.00-5.60) 08/16/19 07:30 Hgb 13.7 GM/dL (11.7-16.9) 08/16/19 07:30 Hct 40.3 % (35.4-49) 08/16/19 07:30 MCV 95.5 fl (80-96) 08/16/19 07:30 MCH 32.4 pg (25.7-33.7) 08/16/19 07:30 MCHC 34.0 g/dl (32.0-35.9) 08/16/19 07:30 RDW 14.0 % (11.9-15.9) 08/16/19 07:30 Plt Count 188 K/MM3 (134-434) D 08/16/19 07:30 MPV 7.8 fl (7.5-11.1) 08/16/19 07:30 Sodium 140 mmol/L (136-145) 08/16/19 07:30 Potassium 3.9 mmol/L (3.5-5.1) 08/16/19 07:30 Chloride 107 mmol/L (98-107) 08/16/19 07:30 Carbon Dioxide 28 mmol/L (21-32) 08/16/19 07:30 Anion Gap 6 MMOL/L (8-16) L 08/16/19 07:30 BUN 10.7 mg/dL (7-18) 08/16/19 07:30 Creatinine 0.9 mg/dL (0.55-1.3) 08/16/19 07:30 Est GFR (CKD-EPI)AfAm 134.24 08/16/19 07:30 Est GFR (CKD-EPI)NonAf 115.82 08/16/19 07:30 Random Glucose 93 mg/dL (74-106) 08/16/19 07:30 Calcium 8.9 mg/dL (8.5-10.1) 08/16/19 07:30 Total Bilirubin 1.0 mg/dL (0.2-1) 08/16/19 07:30 AST 265 U/L (15-37) H 08/16/19 07:30 ALT 261 U/L (13-61) H 08/16/19 07:30 Alkaline Phosphatase 122 U/L (45-117) H 08/16/19 07:30 Total Protein 6.1 g/dl (6.4-8.2) L 08/16/19 07:30 Albumin 3.2 g/dl (3.4-5.0) L 08/16/19 07:30 Syphilis Serology Non-reactive (NONREACTIVE) 08/16/19 07:30 - Medication Discharge Medications: Ambulatory Orders Escitalopram Oxalate [Lexapro -] 20 mg PO DAILY 04/18/19 - AMA Did Patient Leave Against Medical Advice: Yes
[2019-08-17] MEDS ORDERED: chlordiazePOXIDE HCL 25 MG CAPSULE PO SCH (05:00)
[2019-08-17] MEDS ORDERED: LORazepam 1 MG TABLET PO SCH (05:00)
[2019-08-18] MEDS ORDERED: chlordiazePOXIDE HCL 10 MG CAPSULE PO PRN
[2019-08-18] MEDS ORDERED: chlordiazePOXIDE HCL 10 MG CAPSULE PO SCH (05:00)
[2019-08-18] MEDS ORDERED: LORazepam 0.5 MG TABLET PO SCH (05:00)
[2019-08-19] MEDS ORDERED: LORazepam 0.5 MG TABLET PO PRN
[2019-08-19] MEDS ORDERED: LORazepam 0.5 MG TABLET PO ONE (05:00)
[2019-08-19] MEDS ORDERED: chlordiazePOXIDE HCL 10 MG CAPSULE PO SCH (05:00)
[2019-08-20] MEDS ORDERED: chlordiazePOXIDE HCL 10 MG CAPSULE PO ONE (05:00)
== END 2019-08-16 17:48 | disposition left against medical advice (07) | DRG 770 ==
LOC: YASAS 09:09 → Y3N 10:53
PROVIDERS: ADMIT Allergy & Immunology; ATTEND Allergy & Immunology
PROC: HZ2ZZZZ Detoxification Services for Substance Abuse Treatment (ICD-10-PCS; principal; 2019-08-15)
DX: F10.230 Alcohol dependence with withdrawal, uncomplicated (principal); F14.10 Cocaine abuse, uncomplicated; F12.10 Cannabis abuse, uncomplicated; F17.210 Nicotine dependence, cigarettes, uncomplicated; F19.24 Other psychoactive substance dependence with psychoactive substance-induced mood disorder; F41.9 Anxiety disorder, unspecified; G47.00 Insomnia, unspecified; R74.0 Nonspecific elevation of levels of transaminase and lactic acid dehydrogenase [LDH]; Z56.0 Unemployment, unspecified
CPT/HCPCS: 36415; 80053; 85027; 86780; Q0162; U0003